=== PATIENT | male | born 1995 | race Two or more races ===

== ENCOUNTER 2019-03-30 12:51 | Outpatient (CLI) | payer OTHER | END 2019-03-30 13:04 | disposition home or self-care (01) | LOC: RAD 12:51 | DX: M99.01 Segmental and somatic dysfunction of cervical region (principal); M99.02 Segmental and somatic dysfunction of thoracic region ==

== ENCOUNTER 2019-09-04 10:43 | Outpatient (CLI) | payer OTHER | END 2019-09-04 15:35 | disposition home or self-care (01) | LOC: TOM 10:43 | DX: R51 Headache (principal) ==